=== PATIENT | female | born 1995 | race Asian ===

== ENCOUNTER 2016-08-27 19:02 | Emergency (ER) | payer MEDICAID ==
[2016-08-27] MEDS ORDERED: NS 1,000 ML IV ONE (19:17)
[2016-08-27 19:57] LABS: % IMMATURE GRANULYOCYTES 0.3 % (0.0-1.1); ABSOLUTE IMMATURE GRANULOCYTES 0.02 10^3/uL (0.00-0.10); ADD DIFF? NO; ADD MORPH? NO; ADD SCAN? YES; FRAGMENT RBC FLAG 0 (0-99); HEMATOCRIT 42.4 % (38.0-47.0); HEMOGLOBIN 14.3 g/dL (12.6-16.3); LEFT SHIFT FLG 20 (0-99); LIPEMIA HEMOLYSIS FLAG 80 (0-99); MEAN CELL HEMOGLOBIN 30.4 pg (27.9-34.1); MEAN CELL HEMOGLOBIN CONCENTR. 33.7 g/dL (32.4-36.7); MEAN CELL VOLUME 90.2 fL (81.5-99.8); MEAN PLATELET VOLUME 9.8 fL (8.7-11.7); PLATELET CLUMPS FLAG 70 (0-99); PLATELET COUNT 350 10^3/uL (150-400); RED CELL DISTRIBUTION WIDTH 12.5 % (11.5-15.2)
[2016-08-27 19:58] LABS: ALANINE AMINOTRANSFERASE 46 IU/L (9-52); ALBUMIN 4.5 g/dL (3.5-5.0); ALKALINE PHOSPHATASE 80 IU/L (38-126); ANION GAP 12 mEq/L (8-16); ASPARTATE AMINOTRANSFERASE 26 IU/L (14-46); BILIRUBIN,TOTAL 0.7 mg/dL (0.1-1.4); BILIRUBIN-CONJUGATED 0.5 mg/dL (0.0-0.5); BILIRUBIN-UNCONJUGATED 0.2 mg/dL (0.0-1.1); CALCIUM 9.5 mg/dL (8.5-10.4); CARBON DIOXIDE 25 mEq/l (22-31); CHLORIDE 101 mEq/L (97-110); CREATININE 0.7 mg/dL (0.6-1.0); GLOMERULAR FILTRATION RATE > 60; GLUCOSE 86 mg/dL (70-100); POTASSIUM 4.1 mEq/L (3.5-5.2); SODIUM 138 mEq/L (134-144); TOTAL PROTEIN 7.8 g/dL (6.3-8.2)
[2016-08-27 19:59] LABS: ATYPICAL LYMPHOCYTE FLAG 200 (0-99)
[2016-08-27 20:39] LABS: SCAN NEGATIVE
--- NOTE | 2016-08-27 20:39 | EDPHY ---
H & P Stated Complaint: ABD PAIN FOR PAST 9 DAYS. LLQ AREA LIKE A CRAMP HPI/ROS: CHIEF COMPLAINT: Abdominal pain, diarrhea HISTORY OF PRESENT ILLNESS: several days of generalized abdominal pain with intermittent diarrhea. Gradual onset, constant duration. No fever or chills. The pain is mild and generalized, primarily epigastrium. Two 3 bouts of diarrhea on some days, 1-2 on others. No bloody stools or emesis. She was in [place] for 3 weeks, and at the end of her 2nd week the symptoms started. She has no pelvic pain or vaginal bleeding. No vaginal discharge. No dyspareunia. No other associated complaints or modifying factors. REVIEW OF SYSTEMS: Ten systems reviewed and are negative unless otherwise noted in the HPI EXAMINATION: General Appearance: Alert, no distress Head: normocephalic, atraumatic Eyes: Pupils equal and round, no conjunctival pallor or injection ENT, Mouth: Mucous membranes moist Neck: Normal inspection, supple, non-tender Respiratory: Lungs are clear to auscultation Cardiovascular: Regular rate and rhythm Gastrointestinal: Abdomen is soft and nontender. No tympany. No rigidity. No CVA tenderness.Non-acute abdomen. Back: non-tender, no bony abnormalities Neurological: A&O, nonfocal, normal gait Skin: Warm and dry, no rash Extremities: Nontender, no pedal edema Psychiatric: Mood and affect normal DIFFERENTIAL DIAGNOSES: Including but not limited to: Gastritis, enteritis, colitis, diverticulitis, traveler's diarrhea MDM: mild abdominal discomfort with a normal abdominal exam. She does have recent travel and diarrhea with that, but I will treat her for the possibility of traveler's diarrhea. She is hemodynamically stable with no acute distress. I do not feel she needs a CT scan or ultrasound at this time. She is comfortable with this as well. Labs are completely within normal limits. Discharged home with medication for the possibility of traveler's diarrhea. Return to the ER for persistent pain after 24 hours, any fever, bloody stools or emesis. Patient is comfortable with this plan and discharged home in stable condition ED Precautions: Worsening pain. Fever. Bloody stools. Bloody emesis. Constipation or diarrhea. SUPERVISION: This patient was independently evaluated without the aide of supervising physician. Source: Patient Exam Limitations: No limitations - Personal History LMP (Females 10-55): Over 28 Days Ago Current Tetanus/Diphtheria Vaccine: Yes Current Tetanus Diphtheria and Acellular Pertussis (TDAP): Yes - Medical/Surgical History Hx Asthma: No Hx Chronic Respiratory Disease: No Hx Diabetes: No Hx Cardiac Disease: No Hx Renal Disease: No Hx Cirrhosis: No Hx Alcoholism: No Hx HIV/AIDS: No Hx Splenectomy or Spleen Trauma: No Other PMH: denies - Social History Smoking Status: Never smoked Constitutional: Initial Vital Signs Temperature (C) 98.2 F 08/27/16 19:09 Heart Rate 79 08/27/16 19:09 Respiratory Rate 18 08/27/16 19:09 Blood Pressure 115/78 08/27/16 19:09 O2 Sat (%) 96 08/27/16 19:09 O2 Delivery Mode Room Air Allergies/Adverse Reactions: No Known Allergies Allergy (Verified 08/27/16 19:11) Home Medications: Medication Instructions Recorded Control 11/17/15 Ciprofloxacin [Cipro] 500 mg PO BID #14 tab 08/27/16 Medical Decision Making - Data Points Laboratory Results: Laboratory Results 08/27/16 19:40 08/27/16 19:40 WBC Pending RBC Pending Hgb Pending Hct Pending MCV Pending MCH Pending MCHC Pending RDW Pending Plt Count Pending MPV Pending Neut % (Auto) Pending Lymph % (Auto) Pending [place] % (Auto) Pending Eos % (Auto) Pending Baso % (Auto) Pending Nucleat RBC Rel Count Pending Absolute Neuts (auto) Pending Absolute Lymphs (auto) Pending Absolute Monos (auto) Pending Absolute Eos (auto) Pending Absolute Basos (auto) Pending Absolute Nucleated RBC Pending Immature Gran % Pending Immature Gran # Pending Sodium 138 mEq/L (134-144) Potassium 4.1 mEq/L (3.5-5.2) Chloride 101 mEq/L (97-110) Carbon Dioxide 25 mEq/l (22-31) Anion Gap 12 mEq/L (8-16) BUN 10 mg/dL (7-23) Creatinine 0.7 mg/dL (0.6-1.0) Estimated GFR > 60 Glucose 86 mg/dL (70-100) Calcium 9.5 mg/dL (8.5-10.4) Total Bilirubin 0.7 mg/dL (0.1-1.4) Conjugated Bilirubin 0.5 mg/dL (0.0-0.5) Unconjugated Bilirubin 0.2 mg/dL (0.0-1.1) AST 26 IU/L (14-46) ALT 46 IU/L (9-52) Alkaline Phosphatase 80 IU/L (38-126) Total Protein 7.8 g/dL (6.3-8.2) Albumin 4.5 g/dL (3.5-5.0) Lipase 34.0 IU/L (23-300) Beta HCG, Qual NEGATIVE Medications Given: Discontinued Medications Sodium Chloride (Ns) 1,000 mls @ 0 mls/hr IV ONCE ONE PRN Reason: Wide Open Stop: 08/27/16 19:18 Last Admin: 08/27/16 19:37 Dose: 1,000 mls Departure - Departure Disposition: Home, Routine, Self-Care Clinical Impression: Traveler's diarrhea Abdominal pain Qualifiers: Abdominal location: generalized Qualifier Code: (R10.84) Generalized abdominal pain Condition: Good Instructions: Acute Abdominal Pain (ED), Traveler's Diarrhea (ED) Additional Instructions: Follow-up with primary care. Return to the ER for pain that persists past 24 hours, any fever chills, persistent nausea vomiting, persistent diarrhea, dehydration, syncope or bloody stools Referrals: NONE *PRIMARY CARE P,. [Primary Care Provider] - As per Instructions Patricia Moncada MD [Medical Doctor] - As per Instructions Prescriptions: Ciprofloxacin [Cipro] 500 mg PO BID #14 tab
[2016-08-27 20:48] LABS: COLOR PALE YELLOW; LEUKOCYTE ESTERASE,URINE NEGATIVE (NEGATIVE); NITRITE,URINE NEGATIVE (NEGATIVE)
[2016-08-27 20:53] VITALS: BP 115/70; PULSE 74; RESP 20; TEMP 98.1; O2SAT 95
== END 2016-08-27 21:00 | disposition home or self-care (01) ==
DX: R19.7 Diarrhea, unspecified (principal); R10.84 Generalized abdominal pain

== ENCOUNTER 2017-01-28 03:35 | Emergency (ER) | payer MEDICAID ==
[2017-01-28 04:15] LABS: % IMMATURE GRANULYOCYTES 0.8 % (0.0-1.1); ABSOLUTE IMMATURE GRANULOCYTES 0.05 10^3/uL (0.00-0.10); ADD DIFF? NO; ADD MORPH? NO; ADD SCAN? NO; ATYPICAL LYMPHOCYTE FLAG 50 (0-99); FRAGMENT RBC FLAG 0 (0-99); HEMATOCRIT 43.1 % (38.0-47.0); HEMOGLOBIN 14.2 g/dL (12.6-16.3); LEFT SHIFT FLG 10 (0-99); LIPEMIA HEMOLYSIS FLAG 80 (0-99); MEAN CELL HEMOGLOBIN 30.3 pg (27.9-34.1); MEAN CELL HEMOGLOBIN CONCENTR. 32.9 g/dL (32.4-36.7); MEAN CELL VOLUME 92.1 fL (81.5-99.8); MEAN PLATELET VOLUME 10.1 fL (8.7-11.7); PLATELET CLUMPS FLAG 0 (0-99); PLATELET COUNT 329 10^3/uL (150-400); RED BLOOD CELL COUNT 4.68 10^6/uL (4.18-5.33); RED CELL DISTRIBUTION WIDTH 13.3 % (11.5-15.2)
[2017-01-28 04:16] LABS: COLOR COLORLESS; LEUKOCYTE ESTERASE,URINE NEGATIVE (NEGATIVE); NITRITE,URINE NEGATIVE (NEGATIVE)
[2017-01-28 04:57] LABS: ANION GAP 17 mEq/L (8-16); CARBON DIOXIDE 20 mEq/l (22-31); CHLORIDE 108 mEq/L (97-110); CREATININE 0.8 mg/dL (0.6-1.0); ETHANOL SERUM 193 mg/dL (0-10); GLOMERULAR FILTRATION RATE > 60; GLUCOSE 83 mg/dL (70-100); POTASSIUM 3.8 mEq/L (3.5-5.2); SODIUM 145 mEq/L (134-144)
--- NOTE | 2017-01-28 07:23 | EDPHY ---
H & P Stated Complaint: M1, SI, intoxicated Source: Patient, Police Exam Limitations: No limitations, Intoxication - Personal History LMP (Females 10-55): 8-14 Days Ago Current Tetanus/Diphtheria Vaccine: Yes Current Tetanus Diphtheria and Acellular Pertussis (TDAP): Yes - Medical/Surgical History Hx Asthma: No Hx Chronic Respiratory Disease: No Hx Diabetes: No Hx Cardiac Disease: No Hx Renal Disease: No Hx Cirrhosis: No Hx Alcoholism: No Hx HIV/AIDS: No Hx Splenectomy or Spleen Trauma: No Other PMH: bipolar, depression - Social History Smoking Status: Never smoked <Crista Cat - Last Filed: 01/28/17 07:17> <AngelinaAlejandra S - Last Filed: 01/28/17 12:29> Time Seen by Provider: 01/28/17 03:57 HPI/ROS: HPI The patient presents brought in by paramedics on an M1 hold. She says that she was at a green party tonight and drink about 5 alcoholic drinks. She then told friends that she was feeling suicidal and went outside to a balcony and said that she was going to jump. She does not remember this because she was "blackout" drunk. Her friends prevented her. She did not injure herself in any way. She says she is dealing with several stressors in her life, however does not want to elaborate on this. She is taking antidepressants and does have a history of a prior M1 hold for suicidal ideation with plan to take pills. REVIEW OF SYSTEMS Constitutional: No fever, no chills. Eyes: No discharge. ENT: No sore throat. Cardiovascular: No chest pain, no palpitations. Respiratory: No cough, no shortness of breath. Gastrointestinal: No abdominal pain, no vomiting. Genitourinary: No hematuria. Musculoskeletal: No back pain. Skin: No rashes. Neurological: No headache. PMHx: Depression Soc Hx: Alcohol use PHYSICAL General Appearance: Alert, somewhat intoxicated Eyes: Pupils equal and round no pallor or injection ENT, Mouth: Mucous membranes moist Respiratory: There are no retractions, lungs are clear to auscultation Cardiovascular: Regular rate and rhythm Gastrointestinal: Abdomen is soft and non-tender, no masses, bowel sounds normal Neurological: A&O, moves all extremities Skin: Warm and dry, no rashes Musculoskeletal: Neck is supple non tender Extremities: symmetrical, full range of motion Psychiatric: Patient is oriented X 3, there is no agitation (Crista Cat) Constitutional: Initial Vital Signs Temperature (C) 36.7 C 01/28/17 03:51 Heart Rate 67 01/28/17 03:51 Respiratory Rate 18 01/28/17 03:51 Blood Pressure 120/53 L 01/28/17 03:51 O2 Sat (%) 93 01/28/17 03:51 O2 Delivery Mode Room Air Allergies/Adverse Reactions: No Known Allergies Allergy (Verified 08/27/16 19:11) Home Medications: Medication Instructions Recorded Control 11/17/15 Ciprofloxacin [Cipro] 500 mg PO BID #14 tab 08/27/16 Medical Decision Making <Crista Cat - Last Filed: 01/28/17 07:17> <Alejandra Alfaro - Last Filed: 01/28/17 12:29> Differential Diagnosis: This is a 21-year-old female with past medical history of depression and prior M1 hold who presents brought in on an M1 hold for suicidal ideation after drinking alcohol at a green party and then stating that she wanted to jump off a balcony to end her life. She has prior history of suicidal ideation. Differential diagnosis includes worsening depression with suicidal ideation, bipolar disorder with suicidal ideation, polysubstance abuse, alcohol intoxication. In the emergency room, labs were checked and revealed elevated alcohol level, otherwise unremarkable. At approximately 7:30 a.m., the case was signed out to the oncoming provider Dr. Alfaro, she is pending evaluation by our mental health team. (Crista Cat) Other Provider: I assumed care of this patient at shift change from Dr. Cat. The patient is pending evaluation. 0945: HAYLEY 0.04. Pending evaluation. Denies SI. Calm and cooperative. 1105: Re-evaluated patient. She tells me she's had prior depressive and suicidal thoughts in addition to her history of anxiety and PTSD and has previously been hospitalized at a psychiatric facility, though she is unsure if it was helpful. She recently stopped taking her antidepressants because they made her symptoms worse. She was followed by a psychiatrist on campus, but discontinued care with that clinic and is not currently followed by any mental health services. She states she has not drank alcohol in a while before last night and is unsure why her suicidal thoughts resurfaced last night. She denies current suicidal or homicidal ideation. She has not been evaluated yet by mental health. 11:30 a.m.-this patient has been seen by mental health and cleared for outpatient treatment of depression. I agree with this assessment. The patient continues to deny suicidal ideation. (Alejandra Alfaro) - Data Points Laboratory Results: Laboratory Results 01/28/17 04:10 01/28/17 04:10 01/28/17 01/28/17 01/28/17 04:10 04:10 03:45 WBC 5.99 10^3/uL 10^3/uL (3.80-9.50) RBC 4.68 10^6/uL 10^6/uL (4.18-5.33) Hgb 14.2 g/dL g/dL (12.6-16.3) Hct 43.1 % % (38.0-47.0) MCV 92.1 fL fL (81.5-99.8) MCH 30.3 pg pg (27.9-34.1) MCHC 32.9 g/dL g/dL (32.4-36.7) RDW 13.3 % % (11.5-15.2) Plt Count 329 10^3/uL 10^3/uL (150-400) MPV 10.1 fL fL (8.7-11.7) Neut % (Auto) 62.1 % % (39.3-74.2) Lymph % (Auto) 30.1 % % (15.0-45.0) [place] % (Auto) 5.2 % % (4.5-13.0) Eos % (Auto) 1.5 % % (0.6-7.6) Baso % (Auto) 0.3 % % (0.3-1.7) Nucleat RBC Rel Count 0.0 % % (0.0-0.2) Absolute Neuts (auto) 3.72 10^3/uL 10^3/uL (1.70-6.50) Absolute Lymphs (auto) 1.80 10^3/uL 10^3/uL (1.00-3.00) Absolute Monos (auto) 0.31 10^3/uL 10^3/uL (0.30-0.80) Absolute Eos (auto) 0.09 10^3/uL 10^3/uL (0.03-0.40) Absolute Basos (auto) 0.02 10^3/uL 10^3/uL (0.02-0.10) Absolute Nucleated RBC 0.00 10^3/uL 10^3/uL (0-0.01) Immature Gran % 0.8 % % (0.0-1.1) Immature Gran # 0.05 10^3/uL 10^3/uL (0.00-0.10) Sodium 145 mEq/L H mEq/L (134-144) Potassium 3.8 mEq/L mEq/L (3.5-5.2) Chloride 108 mEq/L mEq/L (97-110) Carbon Dioxide 20 mEq/l L mEq/l (22-31) Anion Gap 17 mEq/L H mEq/L (8-16) BUN 13 mg/dL mg/dL (7-23) Creatinine 0.8 mg/dL mg/dL (0.6-1.0) Estimated GFR > 60 Glucose 83 mg/dL mg/dL (70-100) Calcium 10.0 mg/dL mg/dL (8.5-10.4) Urine Color Urine Appearance Urine pH Ur Specific [place] Urine Protein Urine Ketones Urine Blood Urine Nitrate Urine Bilirubin Urine Urobilinogen Ur Leukocyte Esterase Urine Glucose Urine Opiates Screen NEGATIVE (NEGATIVE) Urine Barbiturates NEGATIVE (NEGATIVE) Ur Phencyclidine Scrn NEGATIVE (NEGATIVE) Ur Amphetamine Screen NEGATIVE (NEGATIVE) U Benzodiazepines Scrn NEGATIVE (NEGATIVE) Urine Cocaine Screen NEGATIVE (NEGATIVE) U Marijuana (THC) Screen NEGATIVE (NEGATIVE) Ethyl Alcohol 193 mg/dL H mg/dL (0-10) 01/28/17 03:45 WBC RBC Hgb Hct MCV MCH MCHC RDW Plt Count MPV Neut % (Auto) Lymph % (Auto) [place] % (Auto) Eos % (Auto) Baso % (Auto) Nucleat RBC Rel Count Absolute Neuts (auto) Absolute Lymphs (auto) Absolute Monos (auto) Absolute Eos (auto) Absolute Basos (auto) Absolute Nucleated RBC Immature Gran % Immature Gran # Sodium Potassium Chloride Carbon Dioxide Anion Gap BUN Creatinine Estimated GFR Glucose Calcium Urine Color COLORLESS Urine Appearance CLEAR Urine pH 6.0 (5.0-7.5) Ur Specific [place] 1.003 (1.002-1.030) Urine Protein NEGATIVE (NEGATIVE) Urine Ketones NEGATIVE (NEGATIVE) Urine Blood NEGATIVE (NEGATIVE) Urine Nitrate NEGATIVE (NEGATIVE) Urine Bilirubin NEGATIVE (NEGATIVE) Urine Urobilinogen NEGATIVE EU EU (0.2-1.0) Ur Leukocyte Esterase NEGATIVE (NEGATIVE) Urine Glucose NEGATIVE (NEGATIVE) Urine Opiates Screen Urine Barbiturates Ur Phencyclidine Scrn Ur Amphetamine Screen U Benzodiazepines Scrn Urine Cocaine Screen U Marijuana (THC) Screen Ethyl Alcohol Departure <Crista Cat - Last Filed: 01/28/17 07:17> <Alejandra Alfaro - Last Filed: 01/28/17 12:29> - Departure Disposition: Home, Routine, Self-Care Clinical Impression: Alcohol abuse Depression Qualifiers: Depression Type: other depression Qualified Code(s): F32.89 - Other specified depressive episodes Condition: Good Instructions: Depression (ED), Abuse of Alcohol (ED), Suicide Prevention for Adults (ED) Additional Instructions: Avoid abusing alcohol. Follow up with [facility] to establish care in the next week. Return to the ED for racing thoughts, thoughts of self-harm, or other worsening of condition. Referrals: NONE *PRIMARY CARE P,. [Primary Care Provider] - As per Instructions [facility] [Clinic] - As per Instructions Report Scribed for: Alejandra Alfaro Report Scribed by: Celi Leon Date of Report: 01/28/17 Time of Report: 11:09 <Alejandra Alfaro - Last Filed: 01/28/17 12:29>
[2017-01-28 12:39] VITALS: BP 100/60; PULSE 69; RESP 16; TEMP 97.5; O2SAT 97
== END 2017-01-28 12:39 | disposition home or self-care (01) ==
LOC: EDUNIT#
DX: F32.89 Other specified depressive episodes (principal); F10.10 Alcohol abuse, uncomplicated
CPT/HCPCS: 80305; G0480

== ENCOUNTER 2017-07-21 00:15 | Emergency (ER) | payer MEDICAID ==
[2017-07-21] MEDS ORDERED: LORazepam 2 MG/ML INJ IVP ONE (00:25)
[2017-07-21 00:42] VITALS: TEMP 97.9
[2017-07-21 00:53] LABS: % IMMATURE GRANULYOCYTES 0.4 % (0.0-1.1); ABSOLUTE IMMATURE GRANULOCYTES 0.03 10^3/uL (0.00-0.10); ADD DIFF? NO; ADD MORPH? NO; ADD SCAN? NO; ANION GAP 21 mEq/L (8-16); ATYPICAL LYMPHOCYTE FLAG 20 (0-99); CALCIUM 9.8 mg/dL (8.5-10.4); CARBON DIOXIDE 18 mEq/l (22-31); CHLORIDE 103 mEq/L (97-110); CREATININE 0.9 mg/dL (0.6-1.0); ETHANOL SERUM < 10 mg/dL (0-10); FRAGMENT RBC FLAG 0 (0-99); GLOMERULAR FILTRATION RATE > 60; GLUCOSE 90 mg/dL (70-100); HEMATOCRIT 41.7 % (38.0-47.0); HEMOGLOBIN 14.2 g/dL (12.6-16.3); LEFT SHIFT FLG 0 (0-99); LIPEMIA HEMOLYSIS FLAG 90 (0-99); MEAN CELL HEMOGLOBIN 30.9 pg (27.9-34.1); MEAN CELL HEMOGLOBIN CONCENTR. 34.1 g/dL (32.4-36.7); MEAN CELL VOLUME 90.8 fL (81.5-99.8); MEAN PLATELET VOLUME 10.5 fL (8.7-11.7); PLATELET CLUMPS FLAG 10 (0-99); PLATELET COUNT 309 10^3/uL (150-400); POTASSIUM 4.1 mEq/L (3.5-5.2); RED BLOOD CELL COUNT 4.59 10^6/uL (4.18-5.33); RED CELL DISTRIBUTION WIDTH 12.9 % (11.5-15.2); SODIUM 142 mEq/L (134-144)
--- NOTE | 2017-07-21 01:21 | EDPHY ---
H & P Stated Complaint: shaking, non verbal; hx of anxiety attacks, responds to commands Time Seen by Provider: 07/21/17 00:20 HPI/ROS: Chief Complaint: Shaking uncontrollably HPI: 21-year-old woman with a history of anxiety and depression started having an episode of shaking while having a conversation with a friend. Patient denies any substance use. Does have some anxiety. Is not feeling depressed or suicidal. States that these are similar to prior panic attacks. She is awake alert. Did not lose consciousness. No recent illness. No fevers or chills. No nausea or vomiting. Patient brought in by her friend for further evaluation. Initially patient was nonverbal or answering questions but she is easily redirected. ROS: 10 point Review of Systems is negative except as noted in the HPI. PMH: Anxiety and depression Social History: Denies smoking, denies alcohol, denies other drug use Family History: non-contributory Physical Exam: Gen: Awake, Alert, controlled shaking which is distractible HEENT: Nose: no rhinorrhea Eyes: PERRLA, EOMI Mouth: Moist mucosa Neck: Supple, no JVD Chest: nontender, lungs clear to auscultation Heart: S1, S2 normal, no murmur Abd: Soft, non-tender, no guarding Back: no CVA tenderness, no midline tenderness Ext: no edema, non-tender Skin: no rash Neuro: CN II-XII intact, Sensation grossly intact, Strength 5/5 in bilateral upper and lower extremities - Personal History LMP (Females 10-55): Unknown - Medical/Surgical History Hx Asthma: No Hx Chronic Respiratory Disease: No Hx Diabetes: No Hx Cardiac Disease: No Hx Renal Disease: No Hx Cirrhosis: No Hx Alcoholism: No Hx HIV/AIDS: No Hx Splenectomy or Spleen Trauma: No Other PMH: bipolar, depression - Social History Smoking Status: Never smoked Constitutional: Initial Vital Signs Temperature (C) 36.6 C 07/21/17 00:41 Heart Rate 104 H 07/21/17 00:41 Respiratory Rate 20 07/21/17 00:41 Blood Pressure 107/60 07/21/17 00:41 O2 Sat (%) 98 07/21/17 00:41 O2 Delivery Mode Room Air Allergies/Adverse Reactions: No Known Allergies Allergy (Verified 08/27/16 19:11) Home Medications: Medication Instructions Recorded Control 11/17/15 Sertraline HCl 07/21/17 Medical Decision Making ED Course/Re-evaluation: Patient is significantly improved after Ativan. She is no longer shaking. She is awake alert. She is merline for safety. Symptoms are consistent with anxiety attack. I do not see any evidence of acute infectious process or riders , there is no seizure activity. She is not suicidal or homicidal or gravely disabled at this time. Will discharge with follow up with mental health providers. - Data Points Laboratory Results: Laboratory Results 07/21/17 00:30 07/21/17 00:30 07/21/17 07/21/17 07/21/17 00:30 00:30 00:30 WBC 7.99 10^3/uL 10^3/uL (3.80-9.50) RBC 4.59 10^6/uL 10^6/uL (4.18-5.33) Hgb 14.2 g/dL g/dL (12.6-16.3) Hct 41.7 % % (38.0-47.0) MCV 90.8 fL fL (81.5-99.8) MCH 30.9 pg pg (27.9-34.1) MCHC 34.1 g/dL g/dL (32.4-36.7) RDW 12.9 % % (11.5-15.2) Plt Count 309 10^3/uL 10^3/uL (150-400) MPV 10.5 fL fL (8.7-11.7) Neut % (Auto) 49.3 % % (39.3-74.2) Lymph % (Auto) 37.7 % % (15.0-45.0) [place] % (Auto) 9.3 % % (4.5-13.0) Eos % (Auto) 2.8 % % (0.6-7.6) Baso % (Auto) 0.5 % % (0.3-1.7) Nucleat RBC Rel Count 0.0 % % (0.0-0.2) Absolute Neuts (auto) 3.95 10^3/uL 10^3/uL (1.70-6.50) Absolute Lymphs (auto) 3.01 10^3/uL H 10^3/uL (1.00-3.00) Absolute Monos (auto) 0.74 10^3/uL 10^3/uL (0.30-0.80) Absolute Eos (auto) 0.22 10^3/uL 10^3/uL (0.03-0.40) Absolute Basos (auto) 0.04 10^3/uL 10^3/uL (0.02-0.10) Absolute Nucleated RBC 0.00 10^3/uL 10^3/uL (0-0.01) Immature Gran % 0.4 % % (0.0-1.1) Immature Gran # 0.03 10^3/uL 10^3/uL (0.00-0.10) Sodium 142 mEq/L mEq/L (134-144) Potassium 4.1 mEq/L mEq/L (3.5-5.2) Chloride 103 mEq/L mEq/L (97-110) Carbon Dioxide 18 mEq/l L mEq/l (22-31) Anion Gap 21 mEq/L H mEq/L (8-16) BUN 16 mg/dL mg/dL (7-23) Creatinine 0.9 mg/dL mg/dL (0.6-1.0) Estimated GFR > 60 Glucose 90 mg/dL mg/dL (70-100) Calcium 9.8 mg/dL mg/dL (8.5-10.4) Beta HCG, Qual NEGATIVE Acetaminophen < 10 mcg/mL L mcg/mL (10-30) Ethyl Alcohol < 10 mg/dL mg/dL (0-10) Medications Given: Discontinued Medications Lorazepam (Ativan Injection) 1 mg IVP EDNOW ONE Stop: 07/21/17 00:26 Last Admin: 07/21/17 00:34 Dose: 1 mg Departure - Departure Disposition: Home, Routine, Self-Care Clinical Impression: Anxiety Condition: Good Instructions: Anxiety (ED) Additional Instructions: Follow up with her mental health care provider later today. Return to the emergency depart for increasing depression, suicidal thoughts, worsening anxiety, or any other concerns. Referrals: Patient,NotPresent [Primary Care Provider] - As per Instructions
[2017-07-21 01:55] VITALS: BP 100/60; PULSE 84; RESP 14; O2SAT 93
== END 2017-07-21 01:55 | disposition home or self-care (01) ==
DX: F41.9 Anxiety disorder, unspecified (principal)
CPT/HCPCS: 96374; G0480; J2060